=== PATIENT | female | born 1985 | race Hispanic/Latino ===

== ENCOUNTER 2018-09-26 23:03 | Inpatient (IN) ==
[2018-09-26] MEDS ORDERED: NARCAN IV ONE (23:15)
[2018-09-26] MEDS ORDERED: QUELICIN ONE (23:19)
[2018-09-26] MEDS ORDERED: AMIDATE ONE (23:19)
[2018-09-26] MEDS ORDERED: NARCAN ONE (23:22)
[2018-09-26] MEDS ORDERED: NS 2,000 ML ONE (23:22)
[2018-09-26] MEDS ORDERED: ROMAZICON ONE (23:24)
[2018-09-26] MEDS: DIPRIVAN 1% IV STA (23:28)
[2018-09-26] MEDS ORDERED: NS 1,000 ML IV ONE (23:31)
[2018-09-26] MEDS ORDERED: DIPRIVAN 1% 1,000 MG/100 ML BOTTLE ONE (23:33)
[2018-09-26] MEDS ORDERED: VERSED IV ONE (23:34)
[2018-09-26] MEDS ORDERED: AMIDATE IV ONE (23:35)
[2018-09-26] MEDS ORDERED: QUELICIN IV ONE (23:35)
[2018-09-26] MEDS ORDERED: VERSED ONE (23:41)
[2018-09-27] MEDS: VERSED 100 MG in NS 80 ML IV SCH ×2 (00:41→15:02)
[2018-09-27] MEDS ORDERED: ATIVAN IV ONE (01:02)
[2018-09-27] MEDS ORDERED: ATIVAN ONE (01:06)
[2018-09-27 01:28] LABS: ALLEN TEST YES; BE -4.6 mmoll (-3.0-3.0); BLOOD TYPE ARTERIAL; HCO3-(ACT) 21.3 mmoll (20.0-26.0); METHB 0.9 % (0.0-1.5); O2(CT) 17.4 mL/dL (15.0-23.0); O2HB 97.5 % (95.0-99.0); PCO2(98.6) 30 mmHg (35-45); PO2(98.6) 109 mmHg (60-100); SAMPLE BLOOD; SAO2 99.8 % (95.0-100.0); SRATE 14 BPM; THB 12.6 g/dL (11.5-17.4); TVOL 500 mL; pH(98.6) 7.41 (7.35-7.45)
[2018-09-27 01:30] LABS: MODALITY VENTILATOR
[2018-09-27 01:33] LABS: BASO# 0.02 X1000 (0.0-0.2); BASO% 0.2 % (0.0-0.8); EOS% 1.1 % (0.0-10.0); HEMATOCRIT 41.3 % (37.0-47.0); IMM GRAN# 0.02 X1000 (0.0-0.04); IMM GRAN% 0.2 % (0.0-0.5); LYMPH# 2.96 X1000 (1.2-3.4); LYMPH% 32.1 % (20.5-51.1); MCH 29.2 PG (27-31); MCHC 33.9 g/dL (33-37); MCV 86.2 FL (81-99); MONO# 0.81 X1000 (0.11-0.59); MONO% 8.8 % (1.7-9.3); MPV 11.6 FL (7.4-10.4); NEUT# 5.32 X1000 (1.4-6.5); NEUT% 57.6 % (42.2-75.2); PLT 223 X1000 (130-400); RBC 4.79 XMIL (4.2-5.4); RDW 13.1 % (11.5-14.5); WBC 9.23 X1000 (4.8-10.8)
[2018-09-27 01:38] LABS: INR 0.87; PROTIME 12.5 Seconds (11.0-16.0)
[2018-09-27 01:39] LABS: PTT 25.4 Seconds (22.3-41.8)
[2018-09-27 01:41] LABS: UR AMPHETAMINES QUAL NONE DETECTED (NONE DETECT); UR BARBITUATES QUAL NONE DETECTED (NONE DETECT); UR BENZODIAZEPIN QUAL NONE DETECTED (NONE DETECT); UR CANNABINOIDS QUAL NONE DETECTED (NONE DETECT); UR COCAINE QUAL NONE DETECTED (NONE DETECT); UR METHADONE QUAL NONE DETECTED (NONE DETECT); UR OPIATES QUAL NONE DETECTED (NONE DETECT); UR OXYCODONE QUAL NONE DETECTED (NONE DETECT); UR PCP QUAL NONE DETECTED (NONE DETECT)
[2018-09-27] MEDS ORDERED: ZOSYN 3.375 GM in NS 50 ML IV ONE (02:25)
[2018-09-27] MEDS ORDERED: DIPRIVAN 1% 2,000 MG/200 ML BOTTLE ONE (02:33)
--- NOTE | 2018-09-27 02:41 | PROVIDER DOCUMENTATION ---
This chart was entered by Yoon Beckwith Scribmonty, acting as scribe for Jameel Delacruz MD. HPI-General Adult - General Stated Complaint: unresponsive Time Seen by Provider: 09/27/18 00:23 Source: family, EMS Allergies/Adverse Reactions: Patient Allergies Allergy/AdvReac Type Severity Reaction Status Date / Time No Known Allergies Allergy Verified 09/27/18 01:35 Home Medications: Home Medication List Medication Instructions Recorded Confirmed Last Taken Type NK [No Home Medications] 09/27/18 09/27/18 Unknown History - History of Present Illness -Gen Adult Nature of Presenting Problems: Pt is 33/F presenting to ED via EMS. Pt was found unresponsive. Family sts that she had an argument w/ her and the PD was called, when PD came she passed out. EMS came and she was unresponsive still, given brisk sternal stimulation w/ no response and then given 4 of Narcan w/ no response still. When arriving to ED Pt was still unresponsive, but vital signs were normal. Family sts that pt did not take any illegal drugs or ETOH Review of Systems - Adult - REVIEW OF SYSTEMS - ADULT ROS:: unobtainable per condition Constitutional: reports: see HPI Eyes: reports: see HPI Ears, Nose, Mouth & Throat: reports: see HPI Cardiovascular: reports: see HPI Respiratory: reports: see HPI Gastrointestinal: reports: see HPI Genitourinary: reports: see HPI Musculoskeletal: reports: see HPI Integumentary: reports: see HPI Neurological: reports: see HPI Psychiatric: reports: see HPI Endocrine: reports: see HPI Hematologic/Lymphatic: reports: see HPI Allergic/Immunologic: reports: see HPI All Other Systems: Reviewed and Negative Past History - Adult - PAST MEDICAL HISTORY-ADULT Review of Records: reports: Old Records Reviewed, Nursing Assessment Review, Medications Reviewed, Social history reviewed & non-contributory. Physical Exam-General - PHYSICAL EXAM-ADULT Exam Limited by: unresponsive Initial Vital Signs Reviewed: Yes - CONSTITUTIONAL General Appearance: severe distress, lethargic - RESPIRATORY Respiratory: lungs clear, other (pt intubated for airway protection) - CARDIOVASCULAR Cardiovascular: regular rate, rhythm - SKIN Integumentary: normal color, warm/dry Progress - PLAN OF CARE/RESULTS Progress/Plan/Lab Results: Orders Category Date Time Status Cardiac Monitoring DIRECTED Care 09/26/18 23:30 Active Finger Stick Blood Sugar (ED) DIRECTED Care 09/26/18 23:30 Active Oxygen Therapy- ED Nursing DIRECTED Care 09/26/18 23:30 Active Saline Loc NOW Care 09/26/18 23:30 Active CHEST-PORTABLE [RAD] Stat Exams 09/26/18 23:30 Taken ABG [RESP] Routine Lab 09/26/18 23:30 Ordered ACETAMINOPHEN [TDM] Stat Lab 09/26/18 23:31 Uncollected CBC WITH ELECTRONIC DIFF [HEME] Stat Lab 09/26/18 23:30 Uncollected CK PROFILE [SP CHEM] Stat Lab 09/26/18 23:30 Uncollected COMPREHENSIVE METABOLIC PANEL [CHEM] Stat Lab 09/26/18 23:30 Uncollected LACTATE, PLASMA [CHEM] Stat Lab 09/26/18 23:30 Uncollected PROTIME WITH INR [COAG] Stat Lab 09/26/18 23:30 Uncollected PTT [COAG] Stat Lab 09/26/18 23:30 Uncollected SALICYLATES [TDM] Stat Lab 09/26/18 23:31 Uncollected TROPONIN T Stat Lab 09/26/18 23:30 Uncollected URINE DRUG SCREEN Stat Lab 09/26/18 23:31 Uncollected 0.9% Sodium Chloride Inj [Ns] 1,000 ml Med 09/26/18 23:22 Discontinued .ROUTE As directed 0.9% Sodium Chloride Inj [Ns] 1,000 ml Med 09/26/18 23:31 Discontinued IV 999 mls/hr 0.9% Sodium Chloride Inj [Ns] 80 ml Med 09/26/18 23:00 Active Midazolam [Versed] 100 mg IV As Directed mls/hr Etomidate [Amidate] Med 09/26/18 23:35 Discontinued 20 mg IV NOW ONE Etomidate [Amidate] Med 09/26/18 23:19 Discontinued 40 mg .ROUTE .STK-MED ONE Flumazenil [Romazicon] Med 09/26/18 23:24 Discontinued 0.5 mg .ROUTE .STK-MED ONE Midazolam [Versed] Med 09/26/18 23:41 Discontinued 5 mg .ROUTE .STK-MED ONE Naloxone [Narcan] Med 09/26/18 23:22 Discontinued 2 mg .ROUTE .STK-MED ONE Propofol [Diprivan 1%] Med 09/26/18 23:34 Discontinued See Protocol IV STAT STA Propofol [Diprivan 1%] Med 09/26/18 23:33 Discontinued 1,000 mg in 100 ml .ROUTE As directed Succinylcholine [Quelicin] Med 09/26/18 23:35 Discontinued 100 mg IV NOW ONE Succinylcholine [Quelicin] Med 09/26/18 23:19 Discontinued 200 mg .ROUTE .STK-MED ONE Altered Mental Status Stat Oth 09/26/18 23:30 Ordered EKG [EKG] Stat Ther 09/26/18 23:30 Ordered Result Diagrams: 09/26/18 23:06 - CONSULTS/PCP/HOSPITALIST Notification #1 *Consult/PCP/Hospitalist*: [place] Time Discussed: 02:39 Reason/Comments: admit Consult Disposition: Admit Procedures - INTUBATION Intubation Method: orotracheal Equipment: Glidescope Tube Size (cm): 7.5 Pretreated with 100% Oxygen?: Yes Breath Sounds after Intubation: equal ETT Primary Tube Confirmation: Tube placement verified on XRAY Intubation Complications: oral-unsuccessful attempt, vomited Procedure Comment: 7.5 at R lip 24:25 Departure - Departure Date of Disposition Decision: 09/27/18 Time of Disposition Decision: 02:39 DIAGNOSIS: Collapse, Altered mental status Disposition: ADMITTED INPATIENT 09 Certified Medical Emergency: Emergent Condition: Serious Referrals and Follow-Ups: None,PCP [Primary Care Provider] - - Critical Care Note This patient required my direct & personal management of CC.: Yes Total Time (mins): 60 Critical Care Statement: This patient required my direct personal management to treat or rule out processes, the absence of which, could potentiallly result in sudden, clinically significant life or limb threatening deterioration. Attestation - Physician/ ELAINA Attestation Patient care was provided by Advanced Practice Provider:: No The physician spent face to face time with patient:: Yes Advanced Practice Provider documentation review:: Supervising physician onsite and consulted in the evaluation and care of this patient. The physician did have a face to face encounter with the patient. This chart was documented by the indicated scribe, (Yoon Beckwith Scribe) and accurately reflects the services I performed and decisions made by me, Jameel Delacruz MD, as attested by the provider's signature.
[2018-09-27] MEDS ORDERED: MORPHINE IV ONE (02:43)
[2018-09-27 02:47] LABS: ACETAMINOPHEN < 1.2 ug/mL (10-30); AGAP 13; ALB/GLOB RATIO 1.8; ALBUMIN 4.4 g/dL (3.5-5.0); ALKALINE PHOSPHATASE 75 U/L (32-104); BUN 21 mg/dL (8-22); CALCIUM 9.1 mg/dL (8.8-10.2); CHLORIDE 104 mmol/L (98-107); CK PROFILE 142 U/L (24-173); COSMO 282; CREATININE 0.9 mg/dL (0.5-0.9); ESTIMATED GFR > 60; GLUCOSE 89 mg/dL (70-104); GOT 14 U/L (10-30); GPT 13 U/L (10-36); SALICYLATES < 3.00 mg/dL (3-10); SODIUM 140 mmol/L (136-145); TCO2 23 mmol/L (25-35); TOTAL PROTEIN 6.9 g/dL (6.3-8.3)
[2018-09-27] MEDS ORDERED: KEPPRA 500 MG in NS 100 ML IV ONE (02:58)
[2018-09-27 03:30] LABS: URINE SOURCE CATH
[2018-09-27 03:38] LABS: BILIRUBIN URINE NEGATIVE (NEGATIVE); BLOOD URINE NEGATIVE (NEGATIVE); COLOR YELLOW; GLUCOSE URINE NEGATIVE (NEGATIVE); KETONE URINE NEGATIVE (NEGATIVE); LEUKOCYTES URINE NEGATIVE (NEGATIVE); NITRITE URINE NEGATIVE (NEGATIVE); PH URINE 6.5; PROTEIN URINE NEGATIVE (NEGATIVE); SP GRAVITY URINE 1.025; TURBIDITY URINE CLEAR (CLEAR); UROBILINOGEN URINE NORMAL (NORMAL)
[2018-09-27 03:39] LABS: UR EPITHELIAL CELLS <10 /HPF (<10); URINE BACTERIA NEGATIVE /HPF; URINE RBC <10 /HPF (<10); URINE WBC <10 /HPF (<10)
--- NOTE | 2018-09-27 04:40 | HISTORY AND PHYSICAL ---
REASON FOR ADMISSION: Syncopal event. Ms Hannah Lopez is a 33-year-old woman with no significant past medical history, who according to witnesses, report that she was having an argument with her and suddenly blacked out, fell backwards, and hit her occiput against the concrete floor. She remained unresponsive up until she was brought to the ER, according to the daughter who was the land resource specialist for her dad. When she got to the ER, even despite hard sternal rub, she would not even arouse. She was given Narcan, flumazenil, and did not respond. She was then subsequently intubated for airway protection. Shortly after she was intubated for airway protection, patient became somewhat agitated and has required maximum doses of propofol and Versed to even barely control her. She is currently twitching intermittently which is a little worrisome for possible generalized motor seizure events. Family denied any jerking sensation after she fell. No fecal or urinary incontinence. REVIEW OF SYSTEMS: Could not be obtained for obvious reasons. ALLERGIES: No documented allergies, per the . MEDICATIONS: None. SURGICAL HISTORY: None. FAMILY HISTORY: denies any seizure activity in the family or any medical problems in the family, except for diabetes in her mother. SOCIAL HISTORY: Does not smoke, drink, or illicit drugs, according to the . LABORATORY WORK: CT head and C-spine was negative for any acute for fracture, intracranial bleed, herniation, mass-effect respectively. White count 9000, H and H 14 and 41, platelets 223,000. BUN 21, creatinine 0.9. Troponin negative. PTT is normal. Urine drug screen negative salicylates and acetaminophen normal. ABG shows pH 7.41, pCO2 of 30, pO2 of 109, this is on 14% rate, FiO2 40%, tidal volume 500, PEEP of 5. Chest film, poor inspiratory effort noted. Borderline cardiomegaly. Appears to be a left upper lobe consolidation versus cardiomegaly. PHYSICAL EXAMINATION: GENERAL: A young woman who is sedated on the ventilator. She is having frequent twitching episodes, they are about every 15 seconds. No purposeful movement noted. HEENT: Head is normocephalic, atraumatic. Eyes appear to have a sun setting, fixed, deviated downward gaze. Pupils are reactive but somewhat miotic. No nystagmus noted. I did not do cold caloric testing. Doll's eye movement is equivocal. NECK: Supple. CHEST: The patient has upper lobe wheezes, greater on the left than the right. Decreased air entry in the bases. CARDIOVASCULAR: 1st and 2nd heart sounds heard. No gallops, murmurs, rubs. Rhythm is regular. ABDOMEN: Slightly protuberant, soft, nontender. Hypoactive bowel sounds. No masses or 'megaly. Rectal exam is deferred. EXTREMITIES: No edema, clubbing, cyanosis. Pulses distally intact but with good volume. Regular and symmetrical. NEUROLOGIC: Difficult to assess, although patient radically is in restraints in her hands. She sporadically moves her hands and legs, but this is only when she has the sudden brief twitching spells. Patient's toes are pointing downward. No visual focal motor deficits noted. SKIN: Intact. No breakdown, lesions. NEUROMUSCULAR: Grossly normal. ASSESSMENT: 1. Possible syncopal event. The etiology of this needs to be worked out. Could be vagal spell, i.e. neurocardiogenic episode. This occurred while the patient was having an argument with her . However, echocardiogram needs to be done to rule out any underlying cardiac disease. We will also order a D-dimer rule out possibility of a massive pulmonary embolism causing this. 2. Probable postconcussion motor generalized seizure activity. The patient is still having these frequent twitching episodes. Will consult Neurology. MRI will be ordered. I have started the patient empirically on Keppra. 3. Aspiration pneumonia, probably from poor protection of airway. Continue patient on ventilator support for airway protection. Start patient on empiric antibiotics, namely Zosyn, for aspiration, and scheduled breathing treatments. TOTAL CRITICAL TIME: For this patient was 42 minutes. cc: Maryellen Douglas MD [facility]
[2018-09-27] MEDS ORDERED: MORPHINE IV PRN (05:16)
[2018-09-27] MEDS ORDERED: TYLENOL PO PRN (05:16)
[2018-09-27] MEDS ORDERED: ZOFRAN IV PRN (05:16)
[2018-09-27] MEDS ORDERED: DIPRIVAN 1% IV ONE (05:31)
[2018-09-27] MEDS: NS 1,000 ML IV SCH ×3 (05:39→21:04)
[2018-09-27] MEDS: DIPRIVAN 1% IV STA (05:39)
[2018-09-27] MEDS: DIPRIVAN 1% 1,000 MG/100 ML BOTTLE IV SCH ×8 (05:40→23:31)
[2018-09-27] MEDS: LOVENOX SUBQ SCH (06:10)
[2018-09-27 06:39] LABS: ALLEN TEST YES; BE -1.3 mmoll (-3.0-3.0); BLOOD TYPE ARTERIAL; HCO3-(ACT) 23.9 mmoll (20.0-26.0); METHB 0.9 % (0.0-1.5); O2(CT) 16.9 mL/dL (15.0-23.0); PCO2(98.6) 40 mmHg (35-45); PO2(98.6) 182 mmHg (60-100); SAMPLE BLOOD; SRATE 14 BPM; THB 12.1 g/dL (11.5-17.4); TVOL 500 mL; pH(98.6) 7.38 (7.35-7.45)
[2018-09-27 06:39] LABS: BASO# 0.03 X1000 (0.0-0.2); BASO% 0.2 % (0.0-0.8); EOS# 0.08 X1000 (0.0-0.7); EOS% 0.6 % (0.0-10.0); HEMATOCRIT 39.8 % (37.0-47.0); HEMOGLOBIN 13.6 g/dL (12.0-16.0); IMM GRAN# 0.02 X1000 (0.0-0.04); IMM GRAN% 0.2 % (0.0-0.5); LYMPH# 2.38 X1000 (1.2-3.4); LYMPH% 19.3 % (20.5-51.1); MCH 29.8 PG (27-31); MCHC 34.2 g/dL (33-37); MCV 87.1 FL (81-99); MONO# 0.57 X1000 (0.11-0.59); MONO% 4.6 % (1.7-9.3); MPV 11.5 FL (7.4-10.4); NEUT# 9.26 X1000 (1.4-6.5); NEUT% 75.1 % (42.2-75.2); PLT 158 X1000 (130-400); RBC 4.57 XMIL (4.2-5.4); RDW 13.1 % (11.5-14.5); WBC 12.34 X1000 (4.8-10.8)
[2018-09-27 06:40] LABS: MODALITY VENTILATOR
--- NOTE | 2018-09-27 06:40 | Diag Imaging Result Doc PS360 ---
EXAM: CHEST-PORTABLE HISTORY: ams TECHNIQUE: Chest single view COMPARISON: A follow-up film was performed 30 minutes later FINDINGS: . There is an endotracheal tube malpositioned in the mid esophagus. There is opacification of the left hemithorax. Right lung is poorly expanded. IMPRESSION: Malpositioned endotracheal tube. This positioning was corrected on a follow-up chest x-ray at 12:55 AM Electronically signed by Naveen Flood 09/27/2018 6:37 AM
[2018-09-27 06:49] LABS: AGAP 11; ALB/GLOB RATIO 1.2; ALBUMIN 3.4 g/dL (3.5-5.0); ALKALINE PHOSPHATASE 65 U/L (32-104); BUN 12 mg/dL (8-22); CALCIUM 7.9 mg/dL (8.8-10.2); CHLORIDE 110 mmol/L (98-107); COSMO 277; CREATININE 0.5 mg/dL (0.5-0.9); ESTIMATED GFR > 60; GLUCOSE 101 mg/dL (70-104); GOT 21 U/L (10-30); GPT 14 U/L (10-36); MAGNESIUM 1.8 mg/dL (1.5-2.7); POTASSIUM 3.6 mmol/L (3.5-5.1); SODIUM 139 mmol/L (136-145); TCO2 18 mmol/L (25-35); TOTAL BILIRUBIN 0.64 mg/dL (0.20-1.00); TOTAL PROTEIN 6.2 g/dL (6.3-8.3)
--- NOTE | 2018-09-27 07:01 | Diag Imaging Result Doc PS360 ---
EXAM: CHEST-PORTABLE HISTORY: TUBE PLACENMENT TECHNIQUE: Portable chest single view COMPARISON: 12:23 AM FINDINGS: There has been repositioning of the endotracheal tube. This is located at the art. Left lung is reexpanded. No improved expansion of the right lung. No pleural effusions identified. A nasogastric tube has been placed overlying the esophagus and stomach. There has been suctioned from the stomach. IMPRESSION: Repositioning of the endotracheal tube with reexpansion of the left lung. Endotracheal tube likely needs to be withdrawn another 2 cm. Electronically signed by Naveen Flood 09/27/2018 6:59 AM
--- NOTE | 2018-09-27 07:31 | Diag Imaging Result Doc PS360 ---
EXAM : CT HEAD/C-SPINE W/O CONTRAST HISTORY: head injury/pain TECHNIQUE: 1. CT head without contrast 2. CT cervical spine without contrast COMPARISON: None. FINDINGS: Head: No parenchymal hemorrhage. No epidural or subdural hematoma. No subarachnoid hemorrhage. No mass identified on this noncontrasted exam. No hydrocephalus. There is mucosal thickening in the ethmoid, maxillary, and sphenoid sinuses. Cervical spine: There is good alignment to the cervical spine. No precervical soft tissue swelling. No subluxation. No fracture. There are endotracheal and nasogastric tubes present. There are dense infiltrates in the upper lobes, left greater than right. IMPRESSION: Head: No hemorrhage. No injury. Cervical spine: No acute fracture. Upper lung infiltrates. A preliminary report was given at 2:43 AM This exam was performed using automated exposure control, adjustment of mA or kV according to patient size, and/or use of iterative reconstruction technique. Electronically signed by Naveen Flood 09/27/2018 7:29 AM
[2018-09-27] MEDS: SODIUM CHLORIDE 0.9% INJ SCH (08:32)
[2018-09-27] MEDS: PROTONIX IV SCH (08:33)
[2018-09-27] MEDS: ZOSYN 3.375 GM in NS 50 ML IV SCH ×4 (08:33→21:03)
[2018-09-27] MEDS: DUONEB (A & A) INH SCH ×3 (09:37→22:28)
--- NOTE | 2018-09-27 10:39 | PROGRESS NOTE ---
DATE: 09/27/2018 SUBJECTIVE: This morning, Ms. Lopez is seen in the ICU. She is currently unresponsive because she is sedated and she is on mechanical ventilation. She is not able to provide any interim history. However, per the nursing staff, the night was uneventful. I was able to reach out to her , Mr. Sam Lopez, who told me that he was arguing with the at around 8:00 to 9:00 p.m. and somehow during the argument, the felt dizzy and just when down. According to Mr. Lopez, the fall was somehow broken with the fact that she went on her butt first and on her hand before she went down with her head. He does not think that the hit the head during the fall. Unfortunately, she did not respond after the fall so he called the EMS and patient was brought into the emergency room. This morning, Ms. Lopez continues to be intubated in the ICU. Her vitals are fairly stable. PHYSICAL EXAMINATION: Blood pressure is 98/69, with a MAP of 73, pulse is 83, respirations are 16, temperature is 97.9 degrees. General Examination: Ms. Lopez is a 33-year-old, female. She is in bed. She is currently intubated and sedated on propofol and Versed. HEENT: Mucosa is pink and moist. Anicteric. Acyanotic. Neck: Neck is supple. Chest: Clear to auscultation. No crepitations. No rhonchi. Cardiovascular: Regular rate and rhythm. No murmurs, no rubs, no gallops. GI: Abdomen is soft. Bowel sounds present. Extremities: No pedal edema. : Moraes catheter is in place. OIL ANALYST: The patient is minimally responsive with withdrawal of her lower extremities. Both eye globes look sunken but the pupils are fairly reactive to light. The patient will also move upper extremities to extreme painful stimulation. LABORATORY DATA: WBC is 13.34, hemoglobin is 13.6, platelet count of 158,000. Chemistry is also reviewed and is completely unremarkable. IMAGING STUDIES: Have all been reviewed including a CT scan of the head and cervical spine which showed no acute fracture. There were some upper lung infiltrates, which is concerning for aspiration. CURRENT MEDICATIONS: Have also all been reviewed. She is on Zosyn as an antimicrobial. ASSESSMENT: 1. Unresponsiveness after an argument with family. Etiology is unclear. It is very possible this could be a vasovagal spell. So far, neuroimaging has been unremarkable. We are pending other cardiac workup. 2. Episode of intermittent twitching in the emergency room which was interpreted to be worrisome for seizures. The patient has been started on Keppra. We would continue that. 3. Aspiration pneumonia. Patient is on Zosyn. 4. Recent argument with spouse. 5. Respiratory Failure, currently under the vent and pending Pulmonary evaluation. cc: John Bloom MD MTDD
[2018-09-27] MEDS: KEPPRA 500 MG in NS 100 ML IV SCH (14:48)
--- NOTE | 2018-09-27 17:27 | CONSULTATION ---
DATE OF CONSULTATION: 09/27/2018 REQUESTING PROVIDER: Dr. Maryellen Douglas. REASON FOR CONSULTATION: Ventilator management. HISTORY OF PRESENT ILLNESS: This is a 33-year-old female with no significant medical history. She presented to the ER via EMS with unresponsiveness. She apparently had an argue with her . The police department was called. When the police came, she passed out and hit her occiput against the concrete floor. She remained unresponsive in the ER with normal vital signs. To protect her airway she was intubated. After intubation she developed some possible generalized motor seizure events. She has been admitted to the ER for further evaluation and management. At the time of my examination patient remains intubated and sedated. There is no family at the bedside. All information is obtained from the E-chart. SOCIAL HISTORY: The patient has no history of tobacco, alcohol or illicit drug use. FAMILY HISTORY: Positive for diabetes. ALLERGIES: No known drug allergies. REVIEW OF SYSTEMS: Unable to be obtained. PHYSICAL EXAMINATION: Vital Signs: Temperature 97 degrees, blood pressure 92/66, pulse 83, respiratory rate 16, oxygen saturation 100% on AC mechanical ventilator with spontaneous rate 16, FiO2 40%, tidal volume 500, and PEEP 5. General: Intubated in no acute distress. HEENT: Atraumatic, trachea midline. ET tube in place. Mucosa pink and dry. Respiratory: Mechanically ventilated. Symmetrical excursion. Auscultation reveals inspiratory wheezing or rhonchi in the bilateral upper lung zones. Cardiovascular: Regular rate and rhythm. Gastrointestinal: Bowel sounds present in all 4 quadrants. Soft, obese. Extremities: No pedal edema. No cyanosis, no clubbing. Neurologic: Sedated and unresponsive. LAB DATA: White blood cell 12.34, hemoglobin 14.6, hematocrit 39.8, platelets 158,000. Sodium 139, potassium 3.6, chloride 110, carbon dioxide 18, BUN 12, creatinine 0.5 and glucose 101. ABG, pH 7.38, pCO2 40, PO2 182, HCO3 23.9, base excess -1.3 and oxyhemoglobin 97.0. IMAGING DATA: Chest x-ray revealed left lung reexpanded. No improved right lung expansion. ET tube likely need to be withdrawn another 2 cm. ASSESSMENT: This is a 33-year-old female with no significant medical history. She has been admitted to the intensive care unit with aspiration pneumonia, possible syncopal event and probable seizure activity. 1. Aspiration pneumonia. 2. Possible syncopal event versus vasovagal spell. She was intubated for airway protection. 3. Probable seizure activity. PLAN: 1. Continue AC mechanical ventilator and we will start daily weaning trials per respiratory therapy. 2. Continue antibiotic and bronchodilators. 3. Follow up with chest x-ray and ABG. 4. Dr. Cheung is on board. 5. Continue GI and DVT prophylaxis. 6. Further recommendations pending hospital course. Thank you for the courtesy of this consult. Dictated by DARVIN Newell for Sanjeev Manriquez MD cc: DARVIN Newell MD [facility]
--- NOTE | 2018-09-27 21:56 | ECHO REPORT ---
ORDER DATE: 09/27/2018 MEASUREMENTS: Left ventricular end-diastolic diameter 3.5, end-systolic 2.5, septal thickness 0.9, posterior wall thickness 0.9. Aortic root 3.5, left atrium 3.3. SUMMARY: 1. Adequate quality study. 2. Aortic valve is trileaflet and opens normally on 2-dimensional images. Peak gradient across aortic valve is less than 10 mmHg. Mitral, tricuspid, and pulmonic valves are without evidence of structural abnormality. There is mild tricuspid regurgitation and mild pulmonic insufficiency. The estimated systolic PA pressure by Doppler is 25 to 30 mmHg. Aortic root is normal in size. 3. Normal left ventricular dimensions demonstrated. Estimated left ventricular ejection fraction appears to be at least 65%. No regional wall motion abnormalities are evident. Left atrium, right atrium, and right ventricle normal size with grossly preserved right ventricular systolic function. 4. No pericardial effusion. 5. Appearance of inferior vena cava suggests normal central venous pressure. cc: MD Maryellen Ba MD
[2018-09-28] MEDS: DIPRIVAN 1% 1,000 MG/100 ML BOTTLE IV SCH ×3 (03:00→08:58)
[2018-09-28] MEDS: DUONEB (A & A) INH SCH ×4 (03:12→21:41)
[2018-09-28] MEDS: KEPPRA 500 MG in NS 100 ML IV SCH ×2 (03:42→15:56)
[2018-09-28] MEDS: ZOSYN 3.375 GM in NS 50 ML IV SCH ×4 (03:43→22:08)
[2018-09-28] MEDS: LOVENOX SUBQ SCH (04:16)
[2018-09-28] MEDS: NS 1,000 ML IV SCH (04:16)
[2018-09-28 05:03] LABS: ALLEN TEST YES; BE -3.4 mmoll (-3.0-3.0); BLOOD TYPE ARTERIAL; HCO3-(ACT) 22.3 mmoll (20.0-26.0); METHB 0.5 % (0.0-1.5); O2(CT) 16.9 mL/dL (15.0-23.0); O2HB 97.6 % (95.0-99.0); PCO2(98.6) 30 mmHg (35-45); PO2(98.6) 123 mmHg (60-100); SAMPLE BLOOD; SAO2 99.7 % (95.0-100.0); SRATE 16 BPM; THB 12.2 g/dL (11.5-17.4); TVOL 500 mL; pH(98.6) 7.43 (7.35-7.45)
[2018-09-28 05:04] LABS: MODALITY VENTILATOR
--- NOTE | 2018-09-28 06:37 | Diag Imaging Result Doc PS360 ---
EXAM: CHEST-1 VIEW HISTORY: SOB TECHNIQUE: Portable chest single view COMPARISON: 09/27/2018 FINDINGS: Poor inspiratory effort although this has improved compared to the prior study. No change in the endotracheal tube or nasogastric tube. Mild cardiomegaly. There are infiltrates or atelectasis in the left base. No pleural effusions identified. IMPRESSION: Improvement in the lung expansion, otherwise stable exam. Electronically signed by Naveen Flood 09/28/2018 6:35 AM
--- NOTE | 2018-09-28 08:33 | EKG Report ---
Test Performed on : 09/27/2018 04:35:15 AM Test Reason : ams Blood Pressure : / mmHG Vent. Rate : 083 BPM Atrial Rate : 083 BPM P-R Int : 164 ms QRS Dur : 084 ms QT Int : 374 ms P-R-T Axes : 052 049 050 degrees QTc Int : 439 ms Normal sinus rhythm. Normal ECG No previous ECGs available Unconfirmed Result
[2018-09-28] MEDS: SODIUM CHLORIDE 0.9% INJ SCH (08:58)
[2018-09-28] MEDS: PROTONIX IV SCH (08:58)
--- NOTE | 2018-09-28 09:18 | PROGRESS NOTE ---
DATE: 09/28/2018 SUBJECTIVE: The patient is sedated and intubated. OBJECTIVE: Vital Signs: Temperature 97.8 degrees, heart rate 69, respiratory rate 16, blood pressure 83/50, O2 saturation 100% on mechanical ventilator, FiO2 of 30%. General: This is a 33-year-old, female, lying in bed, in no acute distress. Cardiovascular: S1, S2 heard. No murmurs, gallops, or rubs. Regular rate and rhythm. Respiratory: Clear bilaterally to auscultation. No work of breathing or using accessory muscles. Abdomen: Soft, nontender to palpation. Bowel sounds present. No organomegaly. Extremities: No clubbing, cyanosis, or edema. Peripheral pulses present in both legs. Neurological: Patient is sedated and intubated. LABORATORY DATA: Reviewed. ASSESSMENT AND PLAN: 1. Syncope. Patient has become unresponsive after an argument with her . At this point, we do not know exactly what happened. We are suspecting seizure disorder so Keppra has been provided to this patient. Neurology has been consulted. An MRI has been ordered. We will continue to monitor this patient closely. 2. Acute hypoxemic respiratory failure. Patient continues to be intubated on ventilator FiO2 is 30%. So we are going to do weaning trial today since 10 a.m. 3. Aspiration pneumonia. Patient is on Zosyn will continue to monitor this patient closely. 4. Disposition will see we can extubate this patient today. Pulmonary following this patient. Also neurology has been consulted. We will follow recommendations. cc: Zach Ray MD
[2018-09-28 11:54] LABS: ALLEN TEST NO; BE -3.1 mmoll (-3.0-3.0); BLOOD TYPE ARTERIAL; HCO3-(ACT) 22.5 mmoll (20.0-26.0); METHB 1.3 % (0.0-1.5); O2(CT) 15.8 mL/dL (15.0-23.0); O2HB 96.9 % (95.0-99.0); PCO2(98.6) 33 mmHg (35-45); PO2(98.6) 110 mmHg (60-100); SAMPLE BLOOD; SAO2 99.4 % (95.0-100.0); THB 11.5 g/dL (11.5-17.4); pH(98.6) 7.41 (7.35-7.45)
[2018-09-28 11:55] LABS: MODALITY VENTILATOR
--- NOTE | 2018-09-28 14:59 | Diag Imaging Result Doc PS360 ---
EXAM: MRI BRAIN W/WO CONTRAST 09/27/2018 HISTORY: possible epilepsy TECHNIQUE: T1 sagittal and axial and post gadolinium-enhanced axial with coronal reformation, T2, FLAIR, DWI axial and coronal gradient echo. COMMENT: There are no previous MRI studies available for comparison. There is no evidence of mass effect, bleed, or abnormal extra-axial fluid collection. There is no evidence of restricted diffusion. There is no evidence of abnormal gadolinium enhancement. IMPRESSION: Normal MRI of the brain. Electronically signed by Maco Nicolas 09/28/2018 2:56 PM
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
[2018-09-29] MEDS: DUONEB (A & A) INH SCH ×5 (03:30→21:06)
[2018-09-29] MEDS: KEPPRA 500 MG in NS 100 ML IV SCH (03:52)
[2018-09-29] MEDS: ZOSYN 3.375 GM in NS 50 ML IV SCH ×4 (03:52→21:17)
[2018-09-29 05:03] LABS: ALLEN TEST YES; BE -0.6 mmoll (-3.0-3.0); BLOOD TYPE ARTERIAL; HCO3-(ACT) 24.4 mmoll (20.0-26.0); METHB 0.8 % (0.0-1.5); O2(CT) 18.7 mL/dL (15.0-23.0); O2HB 96.7 % (95.0-99.0); PCO2(98.6) 35 mmHg (35-45); PO2(98.6) 99 mmHg (60-100); SAMPLE BLOOD; THB 13.7 g/dL (11.5-17.4); pH(98.6) 7.43 (7.35-7.45)
[2018-09-29 05:04] LABS: MODALITY ROOM AIR
[2018-09-29] MEDS: LOVENOX SUBQ SCH (05:39)
--- NOTE | 2018-09-29 06:36 | Diag Imaging Result Doc PS360 ---
CHEST-1 VIEW - 09/29/2018 INDICATION: SOB COMPARISON: 09/28/2018 FINDINGS: The patient has been extubated. The lungs are clear. Heart size is normal. No pneumothorax or pleural effusion. IMPRESSION: Negative exam. Electronically signed by Cortez Zhang 09/29/2018 6:34 AM
[2018-09-29 07:05] LABS: BASO# 0.01 X1000 (0.0-0.2); BASO% 0.1 % (0.0-0.8); EOS# 0.04 X1000 (0.0-0.7); EOS% 0.6 % (0.0-10.0); HEMATOCRIT 35.8 % (37.0-47.0); HEMOGLOBIN 12.1 g/dL (12.0-16.0); LYMPH# 1.41 X1000 (1.2-3.4); LYMPH% 20.7 % (20.5-51.1); MCH 29.4 PG (27-31); MCHC 33.8 g/dL (33-37); MCV 87.1 FL (81-99); MONO# 0.65 X1000 (0.11-0.59); MONO% 9.5 % (1.7-9.3); MPV 11.5 FL (7.4-10.4); NEUT# 4.71 X1000 (1.4-6.5); NEUT% 69.1 % (42.2-75.2); PLT 168 X1000 (130-400); RBC 4.11 XMIL (4.2-5.4); RDW 13.7 % (11.5-14.5); WBC 6.82 X1000 (4.8-10.8)
[2018-09-29 07:28] LABS: AGAP 13; BUN 2 mg/dL (8-22); CALCIUM 8.4 mg/dL (8.8-10.2); CHLORIDE 109 mmol/L (98-107); COSMO 281; CREATININE 0.5 mg/dL (0.5-0.9); ESTIMATED GFR > 60; GLUCOSE 98 mg/dL (70-104); POTASSIUM 3.3 mmol/L (3.5-5.1); SODIUM 143 mmol/L (136-145); TCO2 21 mmol/L (25-35)
[2018-09-29] MEDS: SODIUM CHLORIDE 0.9% INJ SCH (09:30)
[2018-09-29] MEDS: PROTONIX IV SCH (09:30)
--- NOTE | 2018-09-29 11:54 | EEG REPORT ---
DATE: 09/28/2018 EEG: REFERRING: Dr. Mao Cheung SOLO MUSICIAN: Selena Pascual BACKGROUND INFORMATION/TECHNIQUE: This is a digitally recorded routine EEG with video history. HISTORY: A 33-year-old, female patient admitted with question of seizure. EEG is ordered to detect evidence of seizures. EEG FINDINGS: A moderately well-formed 8.5 to 9 Hz posterior dominant alpha rhythm is seen symmetrically in the occipital regions and attenuates with eye opening. The anterior background at maximal alertness consists of mixed alpha and beta range frequencies. No definite persistent focal slowing. No epileptiform discharges. No seizures. Hyperventilation induced diffuse physiologic slowing. Photic stimulation induces a normal driving response. The patient becomes drowsy, but stage II sleep is not seen. The EKG demonstrates regular RR intervals. IMPRESSION AND CLINICAL CORRELATION: Normal routine EEG in the awake and drowsy states. Of note, a normal EEG does not rule out epilepsy. Clinical correlation recommended. cc: MD Mao Klein III, MD
--- NOTE | 2018-09-29 12:59 | PROGRESS NOTE ---
DATE: 09/29/2018 Ms. Lopez is awake, alert, and attentive. I observed her carrying on appropriate conversation in [place]oth[place] with her family. She communicated with me through her daughter as science interpreter. She reports a little bit of headache, but not prominent headache. She did not have any other complaints. I do not see any focal neurologic findings. There is no evidence of increased intracranial pressure. Her EEG earlier today was normal. I do not have a definite neurologic explanation for her recent episode. I encouraged her to rest, and I told her I expect she will recover rapidly. Thanks for asking Neurology to see Ms. Lopez. cc: Mao Cheung III, MD
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
[2018-09-30] MEDS: ZOSYN 3.375 GM in NS 50 ML IV SCH (03:21)
[2018-09-30 10:49] VITALS: BP 108/72
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
== END 2018-09-30 11:59 | disposition home or self-care (01) | DRG 208 ==
LOC: ED 23:03 → SUATTDRO 09-27 04:39 → ICU 09-27 04:39
PROVIDERS: ATTEND Internal Medicine
CPT/HCPCS: 31500; 51702; 70450; 70553; 71010; 71045; 72125; 80048; 80053; 80101; 80196; 80301; 80307; 80324; 80329; 80345; 80346; 80353; 80358; 80361; 80365; 81001; 81025; 82003; 82550; 82805; 83735; 83992; 84443; 84484; 85025; 85379; 85610; 85730; 87040; 93005; 93306; 94003; 94640; 94761; 95816; 96365; 96366; 96368; 96375; 99285; 99291; A9270; A9579; C9113; G0431; G0434; G0479; G0480; G6038; G6039; J0330; J1650; J1953; J2060; J2250; J2270; J2310; J2543; J7030; S0164